=== PATIENT | female | born 1995 | race Caucasian/White ===

== ENCOUNTER 2016-12-12 17:07 | Emergency (ER) | payer MEDICAID, OTHER ==
[~2016-12-12] VITALS: Ht 157.5 cm; Wt 69.9 kg
[~2016-12-12 17:07] MED LIST: ACET-1600 PO; PREN1TAB52 PO
[2016-12-12] MEDS ORDERED: BIRTH CONTROL (17:55)
[2016-12-12 18:24] LABS: BLOOD UREA NITROGEN 14 mg/dL (7-18)
[2016-12-12] MEDS ORDERED: DIAZEPAM 5 MG TABLET ONE (18:43)
[2016-12-12] MEDS ORDERED: DIAZEPAM 5 MG TABLET PO ONE (19:00)
[2016-12-12 19:06] VITALS: BP 133/75
== END 2016-12-12 19:27 | disposition home or self-care (01) ==
LOC: ED 19:21
DX: F41.1 Generalized anxiety disorder (principal)
CPT/HCPCS: 36415; 71010; 80048; 81001; 82040; 84703; 85025; 87086; 93005; 99285

== ENCOUNTER 2016-12-16 23:47 | Emergency (ER) | payer OTHER ==
[~2016-12-16 23:47] MED LIST changes: +BIRTH CONTROL
[2016-12-17] MEDS ORDERED: SODIUM CHLORIDE 0.9% 1,000ML IVBOLUS ONE (00:30)
[2016-12-17] MEDS ORDERED: SODIUM CHLORIDE FLUSH 10ML SYR IVF ONE (00:30)
[2016-12-17 01:03] LABS: HEMATOCRIT 44.9 % (34.6-47.8); HEMOGLOBIN 14.8 g/dL (11.7-16.4); WHITE BLOOD COUNT 7.4 x10^3/uL (3.4-10)
[2016-12-17 01:15] LABS: BLOOD UREA NITROGEN 11 mg/dL (7-18)
[2016-12-17] MEDS ORDERED: OMNIPAQUE 350 MG/ML, 100ML BOTTLE ONE (01:28)
[2016-12-17 02:34] VITALS: BP 105/56
== END 2016-12-17 02:37 | disposition home or self-care (01) ==
LOC: ED 12-17 00:47
DX: R06.00 Dyspnea, unspecified (principal); R42 Dizziness and giddiness
CPT/HCPCS: 36415; 71275; 80048; 82040; 84703; 85025; 93005; 96360; 96361; 99285; J7030; Q9967

== ENCOUNTER 2017-01-05 03:10 | Emergency (ER) | payer MEDICAID, OTHER ==
[~2017-01-05] VITALS: Ht 157.5 cm; Wt 70.0 kg
[2017-01-05] MEDS ORDERED: SODIUM CHLORIDE 0.9% 1,000ML IVBOLUS ONE (03:30)
[2017-01-05 03:37] LABS: HEMATOCRIT 44.8 % (34.6-47.8); WHITE BLOOD COUNT 6.9 x10^3/uL (3.4-10)
[2017-01-05 03:48] LABS: ASPARTATE AMINO TRANSFERASE 35 U/L (15-37); BLOOD UREA NITROGEN 9 mg/dL (7-18); DAU SCREEN DISCLAIMER
[2017-01-05 03:55] LABS: ACETAMINOPHEN < 2 mcg/mL (10-30)
[2017-01-05 10:23] VITALS: BP 148/92
[2017-01-05] MEDS ORDERED: ONDANSETRON 2MG/ML, 2ML ONE (11:02)
[2017-01-05] MEDS ORDERED: ONDANSETRON 2MG/ML, 2ML IVPush ONE (11:30)
== END 2017-01-05 12:02 | disposition home or self-care (01) ==
LOC: ED 03:34
DX: T43.221A Poisoning by selective serotonin reuptake inhibitors, accidental (unintentional), initial encounter (principal); F32.9 Major depressive disorder, single episode, unspecified; R45.851 Suicidal ideations; F10.129 Alcohol abuse with intoxication, unspecified; Y92.9 Unspecified place or not applicable
CPT/HCPCS: 36415; 80053; 80307; 80329; 84703; 85025; 93005; 96361; 96374; 99285; J2405; J7030; G0480